=== PATIENT | female | born 1965 | race Caucasian/White ===

== ENCOUNTER 2018-06-07 06:55 | Day surgery (SDC) | payer OTHER ==
[2018-06-06 16:59] LABS: Absolute Monocytes 0.6 K/uL (0.1-1.3); Absolute Neutrophil 3.5 K/uL (1.8-8.0); Basophils % 0.7 % (0-1.3); Eosinophils % 2.4 % (0-4.4); Hematocrit 40.6 % (36.0-45.0); Lymphocytes % 32.4 % (15.3-44.8); MPV 7.6 fL (7.6-11.3); Monocytes % 8.8 % (3.3-12.3); RBC Red Blood Cell Count 4.59 M/uL (3.86-4.86)
[2018-06-06 17:21] LABS: ALT/SGPT 20 U/L (12-78); AST/SGOT 14 U/L (15-37); Albumin 3.9 g/dL (3.4-5.0); Alkaline Phosphatase 71 U/L (45-117); Amylase Level 63 U/L (25-115); Bilirubin Direct < 0.1 mg/dL (0-0.2); Bilirubin Total 0.2 mg/dL (0.2-1.0); Protein, Total 7.9 g/dL (6.4-8.2)
--- NOTE | 2018-06-06 17:21 | RAD REPORT ---
EXAM DESCRIPTION: RAD - Chest Pa And Lat (2 Views) - 06/06/2018 4:47 pm CLINICAL HISTORY: Preop chest, pending cholecystectomy COMPARISON: December 2015 TECHNIQUE: PA and lateral views of the chest were obtained. FINDINGS: The lungs are clear. Heart size is normal and central vasculature is within normal limit s. No pleural effusion or pneumothorax seen. No acute bony finding noted. No aortic abnormality. IMPRESSION: No acute cardiopulmonary process. No significant interval change.
[2018-06-07] MEDS ORDERED: Ringers Lactate 1,000 ML IV ONE (08:08)
[2018-06-07] MEDS ORDERED: CEFOXITIN/SWI 1gm 1 GM/10 ML SYR ONE (08:09)
--- NOTE | 2018-06-07 08:39 | EKG ---
Test Date: 2018-06-06 Test Time: 16:32:45 Cryptoanalysis Teacher: JOSE MEASUREMENT RESULTS: Intervals: Rate: 61 TX: 154 QRSD: 72 QT: 396 QTc: 398 [place]: P: 63 TX: 154 QRS: 67 T: 58 INTERPRETIVE STATEMENTS: Normal sinus rhythm Normal ECG Compared to ECG 01/04/2016 03:57:14 No significant changes Electronically Signed On 06-07-18 08:36:54 CDT by Ernie Arias
[2018-06-07] MEDS ORDERED: MIDAZOLAM HCL 2 MG/2 ML INJ ONE (08:54)
[2018-06-07] MEDS ORDERED: PROPOFOL 200 MG/20 ML VIAL IV ONE (08:54)
[2018-06-07] MEDS ORDERED: FENTANYL CITR 100 MCG/2 ML ONE (08:54)
[2018-06-07] MEDS ORDERED: LIDOCAINE 1% MPF 5 ML VIAL ONE (08:54)
[2018-06-07] MEDS ORDERED: ROCURONIUM 50 MG/5 ML VIAL IV ONE (08:54)
[2018-06-07] MEDS ORDERED: GLYCOPYRROLATE 0.2 MG/ML SYR ONE ×2 (09:28→09:31)
[2018-06-07] MEDS ORDERED: KETOROLAC 30 MG/ML INJ ONE (09:31)
[2018-06-07] MEDS ORDERED: NEOSTIGMINE 1 MG/ML -10 ML VIAL ONE (09:51)
[2018-06-07] MEDS ORDERED: ONDANSETRON 4 MG/2 ML VIAL ONE (09:51)
[2018-06-07] MEDS: HYDROMORPHONE HCL 2 MG/ML inj ONE ×3 (09:59→10:18)
[2018-06-07] MEDS ORDERED: PROMETHAZINE 25 MG/ML VIAL ONE (10:02)
[2018-06-07] MEDS ORDERED: METOCLOPRAMIDE 10 MG/2mL INJ ONE (10:24)
--- NOTE | 2018-06-07 10:51 | OP ---
Date of Procedure: 06/07/2018 Surgeon: Lico Bee MD Preoperative Diagnosis: Symptomatic cholelithiasis. Postoperative Diagnosis: Symptomatic cholelithiasis. Procedure: Laparoscopic cholecystectomy. Estimated Blood Loss: Minimal. Specimen: Gallbladder. Findings: As above. Anesthesia: General. Complications: None. Disposition: The patient tolerated the procedure in stable condition and taken to Recovery in good g eneral condition. Procedure In Detail: The patient was brought to the OR and placed in the supine position. General a nesthesia was begun. The patient was prepped and draped in usual sterile fashion. Marcaine 0.5% was infiltrated locally. A 15-blade was used to make a 1 cm supraumbilical midline incision. Subcutane ous tissue was divided. The fascia was identified and divided. A #1 Vicryl stay suture was placed. Peritoneal cavity was entered with sharp and blunt dissection. A 12-mm trocar was placed into the p eritoneal cavity under direct vision. Pneumoperitoneum was established and then three 5-mm trocars w ere placed, 1 in the epigastrium just to the right of midline and 2 in the right subcostal region. L aparoscopy revealed chronic inflammation of the gallbladder. Fundus retracted superiorly. Infundibu lum was identified and retracted inferolaterally. Cystic duct and cystic artery were clearly identif ied with blunt dissection. Clips placed. Both structures were divided. Cautery was used to remove the gallbladder from the liver bed. Bleeding on the liver bed was controlled with cautery. The gall bladder was retrieved through the umbilicus via an EndoCatch bag. Right upper quadrant was irrigated . Effluent was clear. No evidence of bleeding or bile leakage appreciated. Subsequently, all troca rs were removed under direct vision. Stay sutures were tied to each other to approximate the fascial defect. Subcutaneous wounds were irrigated. Bleeding controlled with cautery. A 3-0 chromic used to reapproximate subcutaneous tissue and carrie were used to close the skin. Sterile dressing was a pplied. The patient was awakened and taken to Recovery in good general condition. Discharge Note: The patient will go to Day Surgery, then home when stable. Disposition: Home. Condition: Stable. Discharge Instructions: Resume home medications and diet. Activity as tolerated. No heavy lifting. Remove outer dressing in 2 days. Shower. Keep wound clean and dry. Follow up in my office in 1 w habematolel. Call for appointment. Tylenol No. 3 one tablet p.o. q.4 p.r.n. pain. /NEHAL Voice ID: [id number] Report ID: [id number]
[2018-06-07] MEDS ORDERED: HYDROCODONE/APAP 7.5/325 MG TAB ONE (11:36)
== END 2018-06-07 12:00 | disposition home or self-care (01) ==
LOC: OR 06:55
PROVIDERS: ATTEND Surgery
PROC: 0FT44ZZ Resection of Gallbladder, Percutaneous Endoscopic Approach (ICD-10-PCS; principal; 2018-06-07 10:15)
DX: K80.10 Calculus of gallbladder with chronic cholecystitis without obstruction (principal); E03.9 Hypothyroidism, unspecified; Z79.899 Other long term (current) drug therapy
CPT/HCPCS: 36415; 71046; 80048; 80076; 82150; 84703; 85025; 88304; 93005; J1170; J2250; J2405; J2550; J2704; J2710; J2765; J3010

== ENCOUNTER 2018-06-13 03:06 | Emergency (ER) | payer OTHER ==
[2018-06-13] MEDS ORDERED: MORPHINE 2 MG/ML SYR ONE (04:00)
[2018-06-13] MEDS ORDERED: NA CHLORIDE 0.9% 1,000 ML ONE (04:01)
[2018-06-13] MEDS ORDERED: ONDANSETRON 4 MG/2 ML VIAL ONE (04:01)
[2018-06-13 04:18] LABS: Absolute Lymphocytes (CBC) 0.6 K/uL (0.7-4.9); Absolute Monocytes 0.5 K/uL (0.1-1.3); Absolute Neutrophil 6.2 K/uL (1.8-8.0); Basophils % 0.2 % (0-1.3); Eosinophils % 0.5 % (0-4.4); Hematocrit 39.4 % (36.0-45.0); Lymphocytes % 8.1 % (15.3-44.8); MPV 7.6 fL (7.6-11.3); Monocytes % 6.7 % (3.3-12.3); RBC Red Blood Cell Count 4.53 M/uL (3.86-4.86)
[2018-06-13 04:26] LABS: ALT/SGPT 27 U/L (12-78); AST/SGOT 12 U/L (15-37); Albumin 3.3 g/dL (3.4-5.0); Alkaline Phosphatase 84 U/L (45-117); BUN Blood Urea Nitrogen 12 mg/dL (7-18); Bicarbonate 24 mmol/L (21-32); Bilirubin Direct < 0.1 mg/dL (0-0.2); Bilirubin Total 0.3 mg/dL (0.2-1.0); Glucose Level 131 mg/dL (74-106); Lipase 104 U/L (73-393); Potassium 3.6 mmol/L (3.5-5.1); Protein, Total 7.3 g/dL (6.4-8.2); Sodium Level 134 mmol/L (136-145)
--- NOTE | 2018-06-13 06:49 | ER ---
Nurse's Notes [facility] Name: Rosa M Duff Age: 53 yrs Sex: Female : 1965 Arrival Date: 06/13/2018 Time: 03:07 Bed 19 Private MD: Akil Gonzalez T Diagnosis: Abdominal tenderness;Diarrhea, unspecified Presentation: 06/13 03:18 Presenting complaint: Patient states: Cholecystectomy 1 week ago. Developed chills, tl2 epigastric pain, fullness, nausea, diarrhea and fever yesterday. Transition of care: patient was not received from another setting of care. Onset of symptoms was June 12, 2018. Risk Assessment: Do you want to hurt yourself or someone else? Patient reports no desire to harm self or others. Initial Sepsis Screen: Does the patient meet any 2 criteria? No. Patient's initial sepsis screen is negative. Does the patient have a suspected source of infection? No. Patient's initial sepsis screen is negative. Care prior to arrival: None. 03:18 Method Of Arrival: Ambulatory tl2 03:18 Acuity: GIFTY 3 tl2 Triage Assessment: 03:21 General: Appears in no apparent distress. uncomfortable, Behavior is calm, cooperative, tl2 appropriate for age. Pain: Complains of pain in epigastric area. GI: Reports diarrhea, epigastric pain, nausea, Patient currently denies vomiting. 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 - Social history:: Smoking status: Patient/guardian denies using tobacco. - Ebola Screening: : No symptoms or risks identified at this time. Screenin:59 Abuse screen: Denies threats or abuse. Denies injuries from another. Nutritional lp1 screening: No deficits noted. Tuberculosis screening: No symptoms or risk factors identified. Fall Risk None identified. Assessment: 03:30 General: Appears in no apparent distress. uncomfortable, Behavior is appropriate for lp1 age. Pain: Complains of pain in abdomen Pain radiates to back Pain currently is 7 out of 10 on a pain scale. Quality of pain is described as sharp, Pain began 1 day ago. Neuro: Level of Consciousness is awake, alert, obeys commands, Oriented to person, place, time, situation. Cardiovascular: Patient's skin is warm and dry. Respiratory: Respiratory effort is even, unlabored. GI: Abdomen is non-distended, Bowel sounds present X 4 quads. Abd is soft and non tender X 4 quads. Reports diarrhea, nausea. : Reports inability to void, less voiding. EENT: No signs and/or symptoms were reported regarding the EENT system. Derm: carrie noted to x3 sites to abdomen; clean, intact. Musculoskeletal: No deficits noted. 04:30 Reassessment: Patient and/or family updated on plan of care and expected duration. Pain lp1 level reassessed. Pain and nausea relieved. 05:12 Reassessment: Patient appears in no apparent distress at this time. Returned from CT at lp1 this time Patient states feeling better. 06:30 Reassessment: Patient appears in no apparent distress at this time. Patient and/or lp1 family updated on plan of care and expected duration. Pain level reassessed. Patient is alert, oriented x 3, equal unlabored respirations, skin warm/dry/pink. Patient states feeling better. Patient states symptoms have improved. Vital Signs: 03:21 BP 138 / 73; Pulse 87; Resp 18; Temp 98.5(O); Pulse Ox 98% on R/A; Weight 68.04 kg; tl2 Height 5 ft. 1 in. (154.94 cm); Pain 5/10; 03:45 BP 130 / 70; Pulse 81; Resp 18; Pulse Ox 97% on R/A; lp1 04:45 BP 123 / 68; Pulse 79; Resp 18; Pulse Ox 96% on R/A; lp1 06:30 BP 113 / 65; Pulse 80; Resp 16; Pulse Ox 96% on R/A; Pain 2/10; lp1 03:21 Body Mass Index 28.34 (68.04 kg, 154.94 cm) tl2 ED Course: 03:07 Patient arrived in ED. ds1 03:08 Akil Gonzalez MD is Private Physician. ds1 03:19 Triage completed. tl2 03:21 Arm band placed on right wrist. tl2 03:23 Mercy Palmer, RN is Primary Nurse. lp1 03:30 Handy Murillo MD is Attending Physician. tw4 03:40 Inserted saline lock: 20 gauge in right antecubital area, using aseptic technique. lp1 Blood collected. 03:59 Patient has correct armband on for positive identification. Placed in gown. Pulse ox lp1 on. NIBP on. 05:15 CT Abd/Pelvis - W/Contrast In Process Unspecified. EDMS 06:49 Akil Gonzalez MD is Referral Physician. tw4 06:58 No provider procedures requiring assistance completed. IV discontinued, No lp1 redness/swelling at site. Pressure dressing applied. Administered Medications: 03:55 Drug: NS 0.9% 1000 ml Route: IV; Rate: 1 bolus; Site: right antecubital; lp1 04:52 Follow up: IV Status: Completed infusion; IV Intake: 1000ml lp1 03:55 Drug: morphine 4 mg Route: IVP; Site: right antecubital; lp1 04:31 Follow up: Response: Pain is decreased lp1 03:56 Drug: Zofran 4 mg Route: IVP; Site: right antecubital; lp1 04:31 Follow up: Response: Nausea is decreased lp1 Intake: 04:52 IV: 1000ml; Total: 1000ml. lp1 Outcome: 06:49 Discharge ordered by . tw4 06:59 Discharged to home ambulatory, with significant other. lp1 06:59 Condition: good 06:59 Discharge instructions given to patient, Instructed on discharge instructions, follow up and referral plans. medication usage, Demonstrated understanding of instructions, follow-up care, medications, Prescriptions given X 1. 07:01 Patient left the ED. lp1 Signatures: Dispatcher [employer] [facility] Cristy Morales ds1 Mercy Palmer, RN RN lp1 Ruby Harris RN RN tl2 Handy Murillo MD MD tw4
--- NOTE | 2018-06-13 06:50 | EDPHYS ---
Physician Documentation [facility] Name: Rosa M Duff Age: 53 yrs Sex: Female : 1965 Arrival Date: 06/13/2018 Time: 03:07 Bed 19 Private MD: Akil Gonzalez T ED Physician Handy Murillo HPI: 06/13 03:33 This 53 yrs old Female presents to ER via Ambulatory with complaints of Post tw4 Surgical Pain, Abdominal Pain - Pressure. 03:33 The patient presents to the emergency department with nausea, vomiting, diarrhea. tw4 Onset: The symptoms/episode began/occurred yesterday. Possible causes: unknown. The symptoms are aggravated by nothing. The symptoms are alleviated by nothing. Associated signs and symptoms: The patient has no apparent associated signs or symptoms. Severity of symptoms: At their worst the symptoms were mild in the emergency department the symptoms are unchanged. The patient has not experienced similar symptoms in the past. 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 - Social history:: Smoking status: Patient/guardian denies using tobacco. - Ebola Screening: : No symptoms or risks identified at this time. ROS: 03:33 Constitutional: Negative for fever, chills, and weight loss, ENT: Negative for injury, tw4 pain, and discharge, Cardiovascular: Negative for chest pain, palpitations, and edema, Respiratory: Negative for shortness of breath, cough, wheezing, and pleuritic chest pain, Back: Negative for injury and pain, MS/Extremity: Negative for injury and deformity. 03:33 Abdomen/GI: Positive for abdominal pain, nausea and vomiting, nausea, vomiting, and diarrhea, nausea, vomiting, Negative for abdominal cramps, abdominal distension, anorexia, dysphagia, hematemesis, black/tarry stool, rectal pain, rectal bleeding. Exam: 03:33 Constitutional: This is a well developed, well nourished patient who is awake, alert, tw4 and in no acute distress. Head/Face: Normocephalic, atraumatic. Chest/axilla: Normal chest wall appearance and motion. Nontender with no deformity. No lesions are appreciated. Cardiovascular: Regular rate and rhythm with a normal S1 and S2. No gallops, murmurs, or rubs. Normal PMI, no JVD. No pulse deficits. Respiratory: Lungs have equal breath sounds bilaterally, clear to auscultation and percussion. No rales, rhonchi or wheezes noted. No increased work of breathing, no retractions or nasal flaring. Back: No spinal tenderness. No costovertebral tenderness. Full range of motion. MS/ Extremity: Pulses equal, no cyanosis. Neurovascular intact. Full, normal range of motion. Neuro: Awake and alert, GCS 15, oriented to person, place, time, and situation. Cranial nerves II-XII grossly intact. Motor strength 5/5 in all extremities. Sensory grossly intact. Cerebellar exam normal. Normal gait. 03:33 Abdomen/GI: Inspection: scar(s), are noted in the umbilical area and right upper quadrant, Bowel sounds: diminished, in all quadrants, Palpation: mild abdominal tenderness, in the epigastric area. Vital Signs: 03:21 BP 138 / 73; Pulse 87; Resp 18; Temp 98.5(O); Pulse Ox 98% on R/A; Weight 68.04 kg; tl2 Height 5 ft. 1 in. (154.94 cm); Pain 5/10; 03:45 BP 130 / 70; Pulse 81; Resp 18; Pulse Ox 97% on R/A; lp1 04:45 BP 123 / 68; Pulse 79; Resp 18; Pulse Ox 96% on R/A; lp1 06:30 BP 113 / 65; Pulse 80; Resp 16; Pulse Ox 96% on R/A; Pain 2/10; lp1 03:21 Body Mass Index 28.34 (68.04 kg, 154.94 cm) tl2 MDM: 03:30 Patient medically screened. tw4 03:33 Differential diagnosis: Nonspecific abd pain, gastritis. Data reviewed: vital signs, tw4 nurses notes. Data interpreted: Pulse oximetry:. Counseling: I had a detailed discussion with the patient and/or guardian regarding: the historical points, exam findings, and any diagnostic results supporting the discharge/admit diagnosis. Special discussion: I discussed with the patient/guardian in detail that at this point there is no indication for admission to the hospital. It is understood, however, that if the symptoms persist or worsen the patient needs to return immediately for re-evaluation. 06/13 03:32 Order name: Basic Metabolic Panel [facility] 06/13 03:32 Order name: CBC with Diff 06/13 03:32 Order name: Creatinine for Radiology tw 06/13 03:32 Order name: Hepatic Function tw 06/13 03:32 Order name: Lipase [facility] 06/13 03:34 Order name: Flu [facility] 06/13 03:32 Order name: IV Saline Lock; Complete Time: 03:56 [facility] 06/13 03:32 Order name: Labs collected and sent; Complete Time: 03:56 [facility] 06/13 03:35 Order name: Influenza Screen (A EDID 06/13 04:46 Order name: CT Abd/Pelvis - W/Contrast [facility] 06/13 06:44 Order name: Urine Dipstick--Ancillary (enter results) mt Administered Medications: 03:55 Drug: NS 0.9% 1000 ml Route: IV; Rate: 1 bolus; Site: right antecubital; lp1 04:52 Follow up: IV Status: Completed infusion; IV Intake: 1000ml lp1 03:55 Drug: morphine 4 mg Route: IVP; Site: right antecubital; lp1 04:31 Follow up: Response: Pain is decreased lp1 03:56 Drug: Zofran 4 mg Route: IVP; Site: right antecubital; lp1 04:31 Follow up: Response: Nausea is decreased lp1 Disposition: 06/13/18 06:49 Discharged to Home. Impression: Abdominal tenderness, Diarrhea, unspecified. - Condition is Stable. - Discharge Instructions: Diarrhea, Adult, Clear Liquid Diet, Adult, Abdominal Pain, Adult, [id number]. - Prescriptions for Zofran 4 mg Oral Tablet - take 1 tablet by ORAL route every 12 hours As needed; 6 tablet. - Medication Reconciliation Form, Thank You Letter, Antibiotic Education, Prescription Opioid Use form. - Follow up: Akil Gonzalez MD; When: Upon discharge from the Emergency Department; Reason: If symptoms return, Recheck today's complaints, Continuance of care. - Problem is new. - Symptoms have improved. Signatures: Dispatcher [employer] EDMS Mercy Palmer, RN RN lp1 Ruby Harris RN RN tl2 Handy Murillo MD MD tw4 Corrections: (The following items were deleted from the chart) 07:01 06:49 06/13/2018 06:49 Discharged to Home. Impression: Abdominal tenderness; Diarrhea, lp1 unspecified. Condition is Stable. Forms are Medication Reconciliation Form, Thank You Letter, Antibiotic Education, Prescription Opioid Use. Follow up: Akil Gonzalez; When: Upon discharge from the Emergency Department; Reason: If symptoms return, Recheck today's complaints, Continuance of care. Problem is new. Symptoms have improved. tw4
[2018-06-13 07:22] LABS: Urine Blood TRACE (NEG); Urine Glucose NEGATIVE (NEG); Urine Protein NEGATIVE (NEG); Urine Specific Gravity <1.005 (1.005-1.030)
--- NOTE | 2018-06-13 11:37 | RAD REPORT ---
EXAM DESCRIPTION: CT - Abdomen Pelvis W Contrast - 06/13/2018 5:37 am CLINICAL HISTORY: ABD PAIN COMPARISON: None Available. TECHNIQUE: CT of the abdomen and pelvis performed following IV administration of iodinated contrast. DLP: 1198.5 mGycm FINDINGS: Lung Bases: The visualized lung bases are clear. Bones: Mild multilevel spondylosis throughout the visualized thoracic and lumbar spine. Abdomen: Liver: The liver has normal size and density. No intrahepatic mass or biliary dilatation. Gallbladder: Prior cholecystectomy. Spleen, Pancreas, and Adrenal Glands: The spleen, pancreas, and adrenal glands are unremarkable. Kidneys: The kidneys have normal size and contour without evidence of solid mass or hydronephrosis. Vasculature: The aorta and IVC have normal caliber and position. The portal vein is patent. The pro ximal visceral and renal arteries are patent. Stomach: The stomach and duodenum have normal course. Other: No free intraperitoneal air. No free fluid or lymphadenopathy. Pelvis: Bladder: Urinary bladder is unremarkable. Bowel: No dilated loops of large or small bowel. Appendix: Normal appendix. Pelvis: Uterus is not enlarged. IMPRESSION: 1. No acute inflammatory or obstructive process identified. This exam was performed according to our departmental dose-optimization program, which includes autom ated exposure control, adjustment of the mA and/or kV according to patient size and/or use of iterati ve reconstruction technique. Electronically signed by: Stiven Fernandez 06/13/2018 5:31 AM CDT Due to temporary technical issues with the PACS/Fluency reporting system, reports are being signed by the in house radiologist as a courtesy to ensure prompt reporting. The interpreting radiologist is f ully responsible for the content of the report.
== END 2018-06-13 07:01 | disposition home or self-care (01) ==
LOC: ER 03:06
DX: R19.7 Diarrhea, unspecified (principal); E78.00 Pure hypercholesterolemia, unspecified; E03.9 Hypothyroidism, unspecified; F32.9 Major depressive disorder, single episode, unspecified
CPT/HCPCS: 36415; 74177; 80048; 80076; 81003; 83690; 85025; 87804; 96361; 96374; 96375; 99284; J2270; J2405; J7030; Q9967